=== PATIENT | male | born 1945 | race Caucasian/White ===

== ENCOUNTER 2018-10-10 16:20 | Emergency (ER) | payer OTHER, BC ==
[~2018-10-10] VITALS: Ht 177.8 cm; Wt 98.9 kg
[~2018-10-10 16:20] MED LIST: ASPIR 8181 MG PO; ATORVASTATIN CA40 MG PO; COREG12.5 MG PO; INVOKANA300 MG PO; METFORMIN HCL500 MG PO; QUINAPRIL 20 MG20 MG PO; QUINU10 PD PO; TYLENOL325 MG PO
[2018-10-10] MEDS ORDERED: IBUPROFEN 600600 M1 PO (18:45)
[2018-10-10 18:48] VITALS: BP 113/62
== END 2018-10-10 18:48 | disposition home or self-care (01) ==
LOC: ER 16:20
DX: S61.411A Laceration without foreign body of right hand, initial encounter (principal); S00.81XA Abrasion of other part of head, initial encounter; S80.212A Abrasion, left knee, initial encounter; I25.10 Atherosclerotic heart disease of native coronary artery without angina pectoris; I42.9 Cardiomyopathy, unspecified; I10 Essential (primary) hypertension; E11.9 Type 2 diabetes mellitus without complications; Z87.891 Personal history of nicotine dependence; W01.0XXA Fall on same level from slipping, tripping and stumbling without subsequent striking against object, initial encounter; Y92.89 Other specified places as the place of occurrence of the external cause; Y93.89 Activity, other specified; Y99.8 Other external cause status